=== PATIENT | male | born 1950 | race Caucasian/White ===

== ENCOUNTER 2024-03-14 01:40 | Inpatient (IN) | payer OTHER ==
[2024-03-14] VITALS (15 sets, daily range): BP systolic 114–161; BP diastolic 68–98
[~2024-03-14] VITALS: Ht 172.7 cm; Wt 83.0 kg
[~2024-03-14 01:40] MED LIST: CHLORTHALIDONE25 MG PO; CYMBALTA20 MG; CYMBALTA20 MG PO; FLOMAX0.4 MG PO; FUROSEMIDE40 MG PO; HYDROXYZINE HCL50 MG PO; LEVOTHYROXINE50 MCG PO; LIPITOR20 MG PO; LISINOPRIL10 MG PO; METOPROLOL SUC100 MG PO; OMEPRAZOLE40 MG PO; POTASSIUM CHLO10 MEQ PO; PRIMIDONE50 MG PO
[2024-03-14] MEDS ORDERED: FAMOTIDINE 20 MG/ 2 ML VIAL IV ONE (01:45)
[2024-03-14] MEDS ORDERED: LACTATED RINGER'S 1,000 ML IV ONE ×2 (01:45→03:15)
[2024-03-14 02:00] LABS: BASOPHILS 0.5 % (0-2); EOSINOPHILS 0.1 % (0-6); HEMATOCRIT 43.1 % (35.0-50.0); HEMOGLOBIN 13.7 g/dL (12.0-18.0); LYMPHOCYTES 7.1 % (24-44); MCH 24.8 (27-36); MCHC 31.9 g/dl (30-36); MCV 77.7 fl (81-99); MONOCYTES 6.3 % (0-12); PLATELET COUNT 154 K/uL (140-440); RBC 5.54 M/ul (4.3-5.7); RDW 14.2 (10.5-15.0)
[2024-03-14 02:38] LABS: ALBUMIN 3.6 g/dL (3.4-5.0); ALBUMIN/GLOBULIN RATIO 1.13 (1.1-2.4); ALKALINE PHOSPHATASE 137 U/L (46-116); ALT (SGPT) 215 U/L (14-59); ANION GAP 8.7 (7-21); AST (SGOT) 425 U/L (15-37); BILIRUBIN, TOTAL 3.5 ng/dL (0.2-1.0); CALCIUM 8.4 mg/dL (8.5-10.1); CARBON DIOXIDE 22 mmol/L (21-32); CHLORIDE 101 mmol/L (98-107); CREATININE, SERUM 1.32 mg/dL (0.70-1.30); GLOMERULAR FILTRATION RATE,EST 57 mL/min (>60); POTASSIUM 3.7 mmol/L (3.5-5.1); PROTEIN, TOTAL 6.8 g/dL (6.4-8.2); UREA NITROGEN 21 mg/dL (7-18)
[2024-03-14 02:43] LABS: INFLUENZA B NAA NEGATIVE (NEGATIVE); RESPIRATORY SYNCYTIAL VIR NAA NEGATIVE (NEGATIVE)
[2024-03-14] MEDS ORDERED: LACTATED RINGER'S 1,000 ML IV SCH ×2 (03:15→16:30)
[2024-03-14] MEDS ORDERED: levoFLOXacin 750 MG/150 ML BAG IV ONE (03:15)
[2024-03-14] MEDS ORDERED: ondansetron HCL 4 MG/2 ML VIAL IV PRN (03:15)
[2024-03-14] MEDS ORDERED: HYDROmorphone HCL 1 MG/ML SYR IV PRN ×2 (03:15→12:45)
[2024-03-14 03:20] LABS: INR 1.22 (0.80-1.30); PROTIME 14.6 Sec (11.2-14.2)
[2024-03-14 03:35] LABS: BILIRUBIN, URINE POSITIVE (negative); BLOOD/HGB, URINE NEGATIVE (Negative); KETONE, URINE NEGATIVE (Negative); LEUK ESTERASE, URINE NEGATIVE (negative); NITRITE, URINE NEGATIVE (negative); PH, URINE 6.5 (5-7)
[2024-03-14 04:33] LABS: LACTIC ACID, BLOOD 3.7 mmol/L (0.4-2.0)
[2024-03-14] MEDS ORDERED: TRAZODONE HCL50 MG PO (04:50)
[2024-03-14] MEDS ORDERED: LIPITOR40 MG PO (04:50)
[2024-03-14] MEDS ORDERED: FLOMAX0.4 MG PO (04:52)
[2024-03-14] MEDS ORDERED: PROPRANOLOL HCL20 MG PO (04:52)
[2024-03-14] MEDS ORDERED: 24 HOUR NASAL16.9 ML NAS (04:53)
--- NOTE | 2024-03-14 05:30 | NUR ---
ATTEMPTED 2ND IV WITHOUT SUCCESS. BRUISE LEFT IN THE AREA OF RFA. WRAPPED WITH GUAZE AND COBAN.
--- NOTE | 2024-03-14 06:16 | NUR ---
PT ARRIVED TO FLOOR AND TRANSFERRED TO BED. IV WNL, SCHEDULED MEDS AND FLUIDS PROVIDED. VS AND I&O COMPLETED. PT STATES PAIN IS 2/10 AND DENIES NEED FOR PAIN INTERVENTION, ASSESSMENT COMPLETED. ABD SOFT, ROUND, TENDER TO PALPATION. PT REPORTS LAST BM YESTERDAY. PT HAS TREMORS AT BASELINE. PT STATES NO OTHER NEEDS AT THIS TIME. C.O.S IN ROOM.
--- NOTE | 2024-03-14 08:39 | NUR ---
DR. BLANDON IN ROOM TO SEE PATIENT AND DISCUSS PLAN OF CARE. PATIENT UP TO VOID.
[2024-03-14] MEDS ORDERED: SODIUM CHLORIDE 0.9% 1,000 ML IV SCH (08:45)
[2024-03-14] MEDS ORDERED: FAMOTIDINE 20 MG/ 2 ML VIAL IV SCH (09:00)
--- NOTE | 2024-03-14 10:16 | NUR ---
VISITED DURING SPIRITUAL CARE ROUNDS. PT APPEARED TO BE SLEEPING. DID NOT DISTURB. PROVIDED PRAYER.
--- NOTE | 2024-03-14 10:30 | NUR ---
Spoke with Forrest. No needs from MARK.
--- NOTE | 2024-03-14 10:30 | NUR ---
Spoke with Forrest. Correctional officers in the room. Pt states he resides at [facility], he does not have any issues walking and does not use any DME. He will return to [facility] on dc and the [facility] will assist pt as needed. No needs from CM.
[2024-03-14] MEDS ORDERED: PROPRANOLOL HCL10 MG PO (11:15)
--- NOTE | 2024-03-14 11:37 | NUR ---
PATIENT GIVEN PRN DILAUDID FOR 9/10 PAIN IN ABDOMEN. PT TOLERATED WELL AND IS NOW RESTING BETTER. METAL CUFFS AND BELLY CHAIN FROM [employer] HAVE BEEN REMOVED PER MD.
[2024-03-14] MEDS ORDERED: VITAMIN D325 MC4 PO (11:51)
--- NOTE | 2024-03-14 11:52 | NUR ---
MED REC COMPLETE
[2024-03-14] MEDS ORDERED: ENOXAPARIN SODIUM 30 MG/0.3 ML SYR SUB-Q SCH (12:38)
[2024-03-14] MEDS ORDERED: ENOXAPARIN SODIUM 40 MG/0.4 ML SYR SUB-Q SCH (12:52)
[2024-03-14] MEDS ORDERED: MAGNESIUM SULFATE 2 GM/50 ML BAG IV ONE (13:00)
--- NOTE | 2024-03-14 14:48 | NUR ---
PATIENT RESTING AT THIS TIME. 1500 LABS TO BE DRAWN. IV FLAGYL STARTED. PT REMAINS TACHYPNEIC AROUND 32-35 AT THIS TIME. PT CONINUES TO BE TREMULOUS AT HIS BASELINE. TEMP IS 103.3 AT THIS TIME. PT TRIES TO STAND TO VOID BUT UNABLE TO VOID AT THIS TIME, HOWEVER SOME AMOUNT OF URINE NOTED ON CHUX UNDER PATIENT. PATIENT NOW BACK IN BED. MD TO BE NOTIFIED OF FEVER.
[2024-03-14 15:29] LABS: ALBUMIN 3.2 g/dL (3.4-5.0); ALBUMIN/GLOBULIN RATIO 0.94 (1.1-2.4); ANION GAP 15.6 (7-21); BILIRUBIN, TOTAL 6.4 ng/dL (0.2-1.0); BUN/CREATININE RATIO 8.73 (6.0-28.6); CALCIUM 7.9 mg/dL (8.5-10.1); CREATININE, SERUM 1.26 mg/dL (0.70-1.30); POTASSIUM 3.6 mmol/L (3.5-5.1); PROTEIN, TOTAL 6.6 g/dL (6.4-8.2)
[2024-03-14] MEDS ORDERED: LIDOCAINE 2% VISCOUS 6 ML SYR TOP ONE (16:00)
[2024-03-14] MEDS ORDERED: CEFEPIME HCL/D5W 2 GM/100 ML PIGGYBACK IV SCH (16:00)
[2024-03-14] MEDS ORDERED: ACETAMINOPHEN 325 MG TAB PO PRN (16:00)
[2024-03-14 16:53] LABS: BILIRUBIN, URINE POSITIVE (negative); BLOOD/HGB, URINE MODERATE (Negative); KETONE, URINE SMALL (Negative); LEUK ESTERASE, URINE NEGATIVE (negative); NITRITE, URINE NEGATIVE (negative); PH, URINE 7.5 (5-7)
[2024-03-14 17:00] LABS: EPITHELIAL CELLS, URINE SQUAMOUS 1+ /lpf (0-1+)
[2024-03-14 17:01] LABS: BACTERIA, URINE NONE SEEN /hpf (negative); CASTS, URINE NONE SEEN \\lpf; CRYSTALS, URINE NONE SEEN (0-1+); REFLEX CULTURE, URINE No (No)
[2024-03-14 17:02] LABS: COLLECTION TYPE, URINE CATH
--- NOTE | 2024-03-14 17:25 | NUR ---
PRESTON CATH INSERTED PER ORDER. URINE IS NOW DARKER AND MORE CONCENTRATED THAN EARLIER TODAY. IVF ARE INFUSING AT 125 ML/HR. AFTER PRESTON INSERTED, PATIENT REPORTS THAT IT FEELS LIKE URINE IS LEAKING. SOME URINE NOTED BELOW HIM ON CHUX PAD. NEW CHUX PLACED AND GOWN PLACED. PATIENT REPORTS PAIN IS UNDER CONTROL AT THIS TIME. [employer] GUARDS REMAIN IN ROOM. IV CEFEPIME INFUSING.
--- NOTE | 2024-03-14 20:29 | NUR ---
PATIENT RESTING IN BED, ALERT AND ORIENTED, HE IS IN RESTRAINTS PER [employer] PROTOCOL, TWO GUARDS IN ROOM. PATIENT IS NOTED TO HAVE PRODUCED 345ML URINE IN LAST HOUR. HE REPORT PAIN 7/10 RLQ ABD. 0.5MG DILAUDID IV PRN PROVIDED. PATIENT TEMP 98.1. HE IS PROVIDED ICE CHIPS FOR COMFORT PER CONVERSATION WITH SURGEON AT SHIFT CHANGE REPORT. ASSESSMENT COMPLETE.
--- NOTE | 2024-03-14 23:00 | NUR ---
IN ROOM PER PRIMARY RN REQUEST TO HUNG SCHEDULED IV ABX AND ADMINISTER PRN TYLENOL-SEE EMAR. pt SWALLOWED TYLENOL WNL. IV SITE WNL, IV FLUIDS INFUSING TO LEFT AC. IV ABX INFUSING WNL DIRECTED VIA LEFT WRIST IV SITE. NO FURTHER NEEDS, CALL LIGHT IN REACH. PRIMARY RN UPDATED AND AWARE.
[2024-03-15] VITALS (16 sets, daily range): BP systolic 131–170; BP diastolic 68–102
--- NOTE | 2024-03-15 00:58 | NUR ---
PATIENT ALERT AND ORIENTED, HE REPORTS HIS PAIN IS WELL MANAGED AT THIS TIME. HE REPORTS NO NEEDS OR CONCERNS AT THIS TIME.
[2024-03-15 05:37] LABS: BASOPHILS 0.4 % (0-2); HEMATOCRIT 37.9 % (35.0-50.0); HEMOGLOBIN 12.5 g/dL (12.0-18.0); LYMPHOCYTES 10.2 % (24-44); MCH 25.5 (27-36); MCV 77.2 fl (81-99); MONOCYTES 8.9 % (0-12); NEUTROPHILS 80.5 % (39-80); PLATELET COUNT 111 K/uL (140-440); RBC 4.91 M/ul (4.3-5.7); RDW 14.6 (10.5-15.0)
[2024-03-15 05:51] LABS: ALBUMIN 2.9 g/dL (3.4-5.0); ALBUMIN/GLOBULIN RATIO 0.97 (1.1-2.4); ANION GAP 13.8 (7-21); BILIRUBIN, TOTAL 5.8 ng/dL (0.2-1.0); BUN/CREATININE RATIO 8.57 (6.0-28.6); CALCIUM 7.8 mg/dL (8.5-10.1); CREATININE, SERUM 1.05 mg/dL (0.70-1.30); POTASSIUM 3.8 mmol/L (3.5-5.1); PROTEIN, TOTAL 5.9 g/dL (6.4-8.2)
[2024-03-15] MEDS ORDERED: levoFLOXacin 750 MG/150 ML BAG IV SCH (06:00)
--- NOTE | 2024-03-15 08:07 | NUR ---
REPORT RECEIVED FROM NIGHT RN - PT RESTING IN BED, AWAKE AND ALERT. REPORTS FEELING BETTER THAN YESTERDAY, GENERAL APPERANCE IMPROVED. PAIN RATING 3/10 RIGHT NOW. NIGHT REVIEW PROVIDED TO .
[2024-03-15] MEDS ORDERED: Calcium Gluconate in NS 1,000 MG/50 ML BAG IV ONE (09:15)
--- NOTE | 2024-03-15 09:30 | NUR ---
ASSESSMENT COMPLETE - PT RESTING IN BED, RATES PAIN IMPROVED FROM 8 TO 3 AFTER PRN ADMINISTRATION. BOWEL TONES ACTIVE, NO BM YET. SMALL AMOUNT OF CLEAR LIQS PROVIDED, PT TOLERATING WITHOUT NAUSEA. VS STABLE. UPDATED POC REVIEWED WITH PT.
--- NOTE | 2024-03-15 09:55 | EKG ---
[facility] [address] [place], [place] [address] Signed Normal sinus rhythm Left axis deviation Abnormal ECG No previous ECGs available Confirmed by ROOSEVELT GODFREY MD ([id number]) on 03/15/2024 9:55:19 AM Electronically Signed By: ROOSEVELT GODFREY 03/15/24 0955 PATIENT NAME: MATILDA CASTANO Electrocardiogram DATE OF : 52 PHYSICIAN: ROOSEVELT GODFREY REPORT #: [id number] REPORT IS CONFIDENTIAL AND NOT TO BE RELEASED WITHOUT AUTHORIZATION
--- NOTE | 2024-03-15 10:00 | NUR ---
PT RESTING IN BED WITHOUT COMPLAINTS. VS WNL ON MONITOR. CALL LIGHT IN REACH.
--- NOTE | 2024-03-15 11:14 | NUR ---
Calcium gluconate infusing per order. Patient resting in bed and states no needs at this time, no pain or nausea. Call light in reach.
--- NOTE | 2024-03-15 11:45 | NUR ---
No change in plan, no needs for cm at this time.
--- NOTE | 2024-03-15 13:01 | NUR ---
RN ROUNDING ON PT - RESTING IN BED TOLERATING CLEAR LIQS WITHOUT PAIN OR NAUSEA. DENIES NEEDS AT THIS TIME. RATES PAIN 2/10, WATCHING TV. CALL LIGHT IN REACH.
--- NOTE | 2024-03-15 13:47 | NUR ---
VISITED DURING SPIRITUAL CARE ROUNDS. PT RECEIVING NURSING CARE. DID NOT INTERRUPT. PROVIDED PRAYER.
[2024-03-15] MEDS ORDERED: CEFEPIME HCL/D5W 1 GM/100 ML PIGGYBACK IV SCH (14:00)
--- NOTE | 2024-03-15 14:06 | NUR ---
VISITED DURING SPIRITUAL CARE ROUNDS. PT APPEARED TO BE SLEEPING. DID NOT DISTURB. PROVIDED PRAYER.
--- NOTE | 2024-03-15 15:57 | NUR ---
PT RESTING IN BED, VS STABLE ON MONITOR. CALL LIGHT IN REACH.
--- NOTE | 2024-03-15 16:00 | NUR ---
PATIENT AWAKE IN BED, 2 OFFICERS IN ROOM. BEDBATH COMPLETE BY THIS SECURITY DOOR INSTALLER AND RN. PATIENT ASSISTING WITH BATH CARE. LINEN AND GOWN CHANGED. PATIENT AMBULATED SHORT DISTANCE AROUND ROOM WITH 2PA FOR SAFETY. BACK TO BED, CALL LIGHT IN EASY REACH. NO OTHER NEEDS AT THIS TIME
--- NOTE | 2024-03-15 16:00 | NUR ---
ASSESSMENT COMPLETE - UNCHANGED. PT CONTINUES TO IMPROVE IN APPERANCE. BED BATH COMPLETE WITH PT AND SERVICE CLEANER ASSISTANCE. LINENS CHANGED, PRESTON CARE COMPLETE. PT ASSISTED WITH AMBULATION AROUND ROOM. ENCOURAGED DEEP BREATHING AND COUGH. BACK TO BED WITH CALL LIGHT IN REACH.
--- NOTE | 2024-03-15 17:54 | NUR ---
RN IN ROOM TO RESPOND TO ALARMING IV PUMP. PT RESTING IN BED WATCHING TV WITHOUT COMPLAINTS. CALL LIGHT IN REACH.
--- NOTE | 2024-03-15 20:00 | NUR ---
ROUNDING ON PATIENT, HE IS REPOSITIONING IN BED, ASSESSMENT COMPLETE. HE HAD LARGE EMESIS LAST PART OF DAYSHIFT. HE REPORTS NO NAUSEA NOW. HE REPORTS PAIN 5/10 AND WOULD LIKE PAIN MEDICATION IF STAFF FEELS APPROPRIATE. THIS RN GAVE EDUCATION ON SIDE EFFECTS OF SLOWING BOWELS AND RESPIRATORY EFFECT. PATIENT THEN SAID, "OH, I DONT REALLY NEED IT THEN" THIS RN THEN DISCUSSED WITH PATIENT IF HIS PAIN IS INCREASEING PAIN MEDICATION IS APPROPRIATE WHEN NEEDED, PATIENT HAD ASKED "HOW OFTEN CAN I HAVE THE PAIN MEDICATION" PATIENT AND NURSE DISCUSSED HE HAS BEEN ON AVERAGE NEEDED ABOUT 2 DOSES OF THE PAIN MEDICATION A SHIFT AND THAT IS EXPECTED, IF THAT IS NO LONGER COVERING PAIN YOU MEDICAL CONDITION IS IMPROVING THERE MAYBE NEED TO INVESTIGATE WHY" PATIENT ADMINISTERED PRN DILAUDID 0.5MG IV AT THIS TIME.
--- NOTE | 2024-03-15 23:19 | NUR ---
CALLED IN REGARDS TO PATIENTS B/P 169/96, HEART RATE 63. ALSO PATIENT HAS INCREASED ABD PAIN ACROSS RIGHT AND LEFT LOWER QUADRANTS, BOWEL TONE RARE TO ABSENT IN UPPER RIGHT AND LEFT QUADRANTS, HYPOACTIVE TO RARE IN BOTH LOWER QUADRANTS OF ABD. EXPLAINED THIS IS NOT UNEXPECTED AT THIS TIME NO NEW ORDERS.
--- NOTE | 2024-03-15 23:37 | NUR ---
PATIENT ANDMINISTERED DILAUDID PRN FOR PAIN 03/15, HE ALSO IS GIVEN TYLENOL TO HELP WITH ACHES/PAIN AND LOW GRADE FEVER. HE REPORTS NAUSEA THIS RN INTO ROOM, ZOFRAN 8MG IV ADMINISTERED, NO EMESIS.
[2024-03-16] VITALS (15 sets, daily range): BP systolic 138–172; BP diastolic 88–103
--- NOTE | 2024-03-16 01:02 | NUR ---
PATIENT SITTING UP IN BED, ALERT AND ORIENTED, HE REPORTS HIS NAUSEA IS GONE AND HIS PAIN IS WELL MANAGED AT THIS TIME. HE HAS NO REQUEST AT THIS TIME
[2024-03-16 05:30] LABS: BASOPHILS 0.4 % (0-2); EOSINOPHILS 0.6 % (0-6); HEMATOCRIT 38.4 % (35.0-50.0); HEMOGLOBIN 12.9 g/dL (12.0-18.0); LYMPHOCYTES 16.7 % (24-44); MCH 25.5 (27-36); MCHC 33.6 g/dl (30-36); MCV 75.9 fl (81-99); MONOCYTES 11.1 % (0-12); NEUTROPHILS 71.2 % (39-80); PLATELET COUNT 101 K/uL (140-440); RBC 5.06 M/ul (4.3-5.7); RDW 14.8 (10.5-15.0)
--- NOTE | 2024-03-16 05:30 | NUR ---
LABS HAS DRAWN FOR AM ORDERS, PATIENT IS ALERT AND ORIENTED, HE REPORTS NO NAUSEA, AND PAIN IS WELL MANAGED AT THIS TIME. TWO GUARDS FROM [employer] AT BEDSIDE, PATIENT IN RESTRAINTS PER [employer] PROTOCOL MANAGED BY [employer] GUARDS. PATIENT REQUESTED ICE CHIPS, CUP WITH JUST BOTTOM COVERED IN ICE FOR ORAL COMFORT. PATIENT HAS NO OTHER REQUESTS AT THIS TIME.
--- NOTE | 2024-03-16 05:45 | NUR ---
PATIENT CALLED TO REPORT PAIN 8/10 ASKING FOR PAIN COVERAGE. PATIENT ADMINISTERED TYLENOL PO WITH SIP OF WATER AND DILAUDID IV PRN. PATIENT REPORTS NO NAUSEA
[2024-03-16 05:49] LABS: ALBUMIN 2.8 g/dL (3.4-5.0); ALBUMIN/GLOBULIN RATIO 0.8 (1.1-2.4); ANION GAP 12.6 (7-21); BILIRUBIN, TOTAL 4.4 ng/dL (0.2-1.0); BUN/CREATININE RATIO 7.14 (6.0-28.6); CALCIUM 7.9 mg/dL (8.5-10.1); CREATININE, SERUM 0.98 mg/dL (0.70-1.30); POTASSIUM 3.6 mmol/L (3.5-5.1); PROTEIN, TOTAL 6.3 g/dL (6.4-8.2)
--- NOTE | 2024-03-16 07:45 | NUR ---
REPORT RECIEVED FROM WIRE SPOOLER RN. PATIENT ALERT AND ORIENTED. PER REPORT PATIENT CONTINUES TO REPORT ABD PAIN. PATIENT ON TELE MONITOR. CALLS APPROPRIATELY. PATIENT E[facility]I AND HAS SHACKLES IN PLACE AND 2 GAURDS AT THE BEDSIDE.
--- NOTE | 2024-03-16 09:00 | NUR ---
REPORT RECIEVED FROM PA ED RN. PATIENT TRANSFERED FROM ER NURSE TO ROOM 126. PATIENT ASSSITED TO BED AND TOELRATED WELL. SKIN CHECK PREFORMED WITH ELMER AND ED RN. PATIENT ARRIVED WITH NG TUBE IN PLACE. PLACED TO LOW INT. SUCTION. MD YBARRA WILL BE IN TO SEE PATIENT. PATIENT IS A MEDSURG OVERFLOW PATIENT. PATIENT DENIES ANY OTHER NEEDS AT THIS TIME.
--- NOTE | 2024-03-16 09:29 | NUR ---
IN TO CHECK ON PT. ASKED PT ABOUT PAIN. PT WAS SLOW TO ANSWER, BUT EVENTUALLY REPORTED 7/10 PAIN AND REQUESTED MEDS. MONIE NICOLE NOTIFIED. VS TAKEN. PT AFEBRILE AT 98.3. MORNING MED PASS DONE WITH MONIE NICOLE. EXPLAINED TO PT THE MEDS HE WAS BEING GIVEN AND ASKED IF HE HAD ANY QUESTIONS. PT DENIES QUESTIONS. PT WAS POLITE AND AGREEABLE. CALL LIGHT WITHIN REACH. PT DENIES ANY FURTHER NEEDS AT THIS TIME.
--- NOTE | 2024-03-16 09:30 | NUR ---
RESIDENT TECH IN TO ASSSIT PATIENT UP TO THE BEDSIDE CAMMODE. PATIENT TOELRATED WELL. PATIENT BACK IN BED AND CALL LIGHT IN REACH.
--- NOTE | 2024-03-16 09:40 | NUR ---
No plan for dc today.
[2024-03-16] MEDS ORDERED: DEXTROSE 5% - LACTATED RINGERS 1,000 ML IV SCH (10:00)
--- NOTE | 2024-03-16 10:00 | NUR ---
PRN PAIN MEDICATION GIVEN FOR PAIN 04/15 IN ABD. PATIENT RESTING IN BED. MD YBARRA IN TO SEE PATIENT AND DISSCUSED PLAN OF CARE WITH PATIENT. WILL ENCOURAGE PATIENT TO HAVE CLEAR LIQUIDS TOLERATED. PATIENT ALERT AND ORIENTED. PATIENT HAS SHACKLES IN PLACE X4. PATIENT HAS 2 GAURDS AT THE BEDISDE. AM MEDICATIONS ADMINISTERED. P[ATIENT HAS CALL LIGHT. RESIDENT TECH IN TO DO I/O. ICE PROVIDED.
[2024-03-16] MEDS ORDERED: PROPRANOLOL HCL 20 MG TAB PO SCH (10:02)
--- NOTE | 2024-03-16 12:00 | NUR ---
PATIENT RESTING IN BED.PATIENT DENIES ANY NEEDS AT THIS TIME. RESIDENT TECH IN TO DO VITALS AND ASSIST WITH CARE.
--- NOTE | 2024-03-16 14:04 | NUR ---
THIS RN IN TO CHANGE IV PUMP D/T BEEPING. PATIENT REPORTS PAIN IS 4/10 AND IMPROVED SINCE EARLIER. DISCUSSED PLAN TO HAVE PATIENT GET UP AND WALK THE UNIT IN AWHILE.
--- NOTE | 2024-03-16 15:00 | NUR ---
AMBULATED PT DOWN CCU BUCHANAN. [employer] GUARDS X2 ACCOMPANIED. PT SEEMED A LITTLE SHAKY ON FEET BUT DENIED FEELING LIGHTHEADED OR DIZZY EACH OF THE THREE TIMES HE WAS ASKED. PT MADE ONE FULL LOOP OF WALKING. AMBULATED PT BACK TO PT ROOM WHERE KIM OLSON HAD CHANGED BED LINENS. THIS SRT AND KIM OLSON ASSISTED PT WITH BED BATH AND SHOWER CAP. FRESH WARM BLANKETS BROUGHT AND PT SETTLED BACK INTO BED. PT REPORTS FEELING SLIGHTLY BETTER AFTER WALK AND BED BATH. CALL LIGHT WITHIN REACH, PT DENIES ANY FURTHER NEEDS AT THIS TIME.
--- NOTE | 2024-03-16 17:31 | NUR ---
PATIENT CALLED REQUESTING PAIN MEDICATION. PATIENTS GAURDS AT THE BEDSIDE. PATIENT REPORTS 8/10 PAIN AT THIS TIME. PATIENT GIVEN PRN PAIN MEDICAITION. PATIENT DENIES ANY OTHER ENEDS AT THIS TIME. UPDATED PATIENTS GUARDS ON THE "BEEPING" IN THE ROOM. EDUCATED THERE IS NO NEED TO CALL ON THE MONITOR ALARMS THAT THE STAFF WILL TAKE CARE OF THEM SOON POSSIBLE. PATIENTS ROBSON HAVE MADE SOME INAPPROPRIATE COMMENTS TO PATIENT AND STAFF TODAY. CASTING MACHINE OPERATOR HELPER RN UPDATED.
--- NOTE | 2024-03-16 18:15 | NUR ---
PATIENT MOVED TO ROOM 123 VIA BED WITH 2 GADIOMEDES AT THE BEDSIDE. ALL BELONGINGS SENT WITH ROBSON. PATIENT REPORT GIVEN TO LIAM LOMAX. ALL QUESTIONS ANSWERED. REVIEWD PLAN OF CARE. ICE CHIPS PROVIDED AND PRESTON EMPTIED PRIOR TO TRANSFER.
--- NOTE | 2024-03-16 18:16 | NUR ---
PT ARRIVES TO ROOM 123 VIA BED WITH CCU RN - ALERT AND ORIENTED, RATES PAIN 3/10. VS STABLE. ICE CHIPS PROVIDED, DENIES NAUSEA. CALL LIGHT IN REACH. SHANTALDS X2 AT BEDSIDE.
--- NOTE | 2024-03-16 19:15 | NUR ---
REPORT RECEIVED FROM DAY SHIFT RN. PT LYING IN BED ALERT AND ORIENTED. DENIES NEEDS. WHITE BOARD UPDATED. CALL LIGHT IN REACH.
--- NOTE | 2024-03-16 20:12 | NUR ---
EVENING ASSESSMENT COMPLETE. IV ABX INFUSING PER ORDER. PT DENIES PAIN OR NAUSEA AT THIS TIME. BOWEL TONES HYPOACTIVE. ABD SOFT. PT REPORTS ONLY TAKING A FEW ICE CHIPS AT A TIME. PRESTON PATENT WITH ORANGISH YELLOW URINE. PT DENIES QUESTIONS OR CONCERNS. CALL LIGHT IN REACH. GUARDS X 2 IN ROOM.
--- NOTE | 2024-03-16 20:59 | NUR ---
SCHEDULED MEDS ADMIN PER EMAR. IV ABX INFUSING PER ORDER. NO FURTHER NEEDS. CALL LIGHT IN REACH.
--- NOTE | 2024-03-16 22:16 | NUR ---
pump alarming, issue resolved. iv abx complete via left ac site. iv abx with iv fluids infusing wnl via left wrist iv site. no additional needs or concerns verbalized. board updated.
--- NOTE | 2024-03-17 00:12 | NUR ---
PT RESTING IN BED ON RIGHT SIDE. DENIES NEEDS. GUARDS X 2 IN ROOM.
--- NOTE | 2024-03-17 02:07 | NUR ---
PT LYING ON LEFT SIDE RESTING WITH EYES CLOSED. AWAKENS BRIEFLY. IV ABX INFUSING PER ORDER. NO NEEDS AT THIS TIME. GUARDS REMAIN IN ROOM. CALL LIGHT IN REACH.
--- NOTE | 2024-03-17 03:57 | NUR ---
PT RESTING IN BED WITH EYES CLOSED. RESPIRATIONS EVEN. CALL LIGHT IN REACH.
--- NOTE | 2024-03-17 04:42 | NUR ---
in room per primary rn request to assess iv site, lon informed her pt is "messing with the iv site". this rn in room, pt fidgeting with left wrist iv site dressing, pt instructed immediately to leave iv site alone and promptly educated why this is important. when asked why he is fidgeting with iv site, pt states, "i don't know what i was thinking, i'm sorry. sometimes my brain doesn't work right". pt instructed to leave iv site alone and to call if iv site becomes bothersome, pt verbalizes understanding.iv site dressing loose. old dressing removed, site cleaned with alcohol allowed to dry then new dressing in place. clave cleaned, iv fluids resumed. guards x2 in room. primary rn updated and aware. no additional needs or concerns verbalized. x2 in room.
[2024-03-17 05:23] VITALS: BP 162/84
[2024-03-17 05:23] LABS: HEMOGLOBIN 12.9 g/dL (12.0-18.0)
[2024-03-17 05:26] LABS: BASOPHILS 0.7 % (0-2); EOSINOPHILS 1.6 % (0-6); HEMATOCRIT 39.3 % (35.0-50.0); LYMPHOCYTES 14.8 % (24-44); MCH 25.1 (27-36); MCHC 32.8 g/dl (30-36); MCV 76.5 fl (81-99); MONOCYTES 7.6 % (0-12); NEUTROPHILS 75.3 % (39-80); PLATELET COUNT 139 K/uL (140-440); RBC 5.13 M/ul (4.3-5.7); RDW 15.1 (10.5-15.0)
--- NOTE | 2024-03-17 05:32 | NUR ---
VS AND I&O OBTAINED. PT DENIES PAIN OR NAUSEA. PRESTON PATENT WITH QS URINE. PT DENIES NEEDS. GUARDS X 2 IN ROOM. CALL LIGHT IN REACH.
[2024-03-17 05:36] LABS: ALBUMIN 2.8 g/dL (3.4-5.0); ALBUMIN/GLOBULIN RATIO 0.8 (1.1-2.4); ANION GAP 13.3 (7-21); BUN/CREATININE RATIO 6.45 (6.0-28.6); CALCIUM 8.1 mg/dL (8.5-10.1); CREATININE, SERUM 0.93 mg/dL (0.70-1.30); MAGNESIUM 1.6 mg/dL (1.8-2.4); PHOSPHORUS, INORGANIC 1.9 mg/dL (2.5-4.9); POTASSIUM 3.3 mmol/L (3.5-5.1); PROTEIN, TOTAL 6.3 g/dL (6.4-8.2)
[2024-03-17] MEDS ORDERED: LEVOTHYROXINE SODIUM 50 MCG TAB PO SCH (07:00)
[2024-03-17] MEDS ORDERED: MAGNESIUM SULFATE 2 GM/50 ML BAG IV ONE ×2 (07:00→09:00)
[2024-03-17] MEDS ORDERED: POTASSIUM PHOSPHATE 30 MMOL in DEXTROSE 5% 500 ML IV ONE ×2 (07:00→09:00)
--- NOTE | 2024-03-17 07:45 | NUR ---
Patient awake in bed, alert and oriented x4. Patient reports abdominal pain, admin dilaudid 0.5mg IV at this time.
[2024-03-17] MEDS ORDERED: FAMOTIDINE 20 MG TAB PO SCH (09:00)
[2024-03-17] MEDS ORDERED: TAMSULOSIN HCL 0.4 MG CAP PO SCH (09:00)
[2024-03-17 09:14] VITALS: BP 153/85
--- NOTE | 2024-03-17 09:49 | NUR ---
NO PLAN FOR DC. PATIENT MAY NEED SURGERY IN 1-2 DAYS. SEE MD NOTE.
--- NOTE | 2024-03-17 11:06 | NUR ---
UR CONCURRENT REVIEW: [facility]-CONTINUES TO MEET INPT STATUS PER PANCREATITIS GUIDELINE [facility] INPT-CCU 03/14/24 @ 0312 CHANGE TO M/S STATUS 03/16/24 @ 1815 ORDER MATCHES STATUS CLINICALS FAXED THIS AM FOR CONTINUED REVIEW. PLAN TO RETURN TO [facility] [place] 03/20/24
[2024-03-17] MEDS ORDERED: DULOXETINE HCL 60 MG CAP PO SCH ×2 (12:00→12:15)
[2024-03-17] MEDS ORDERED: DULOXETINE HCL 20 MG CAP PO SCH (12:15)
--- NOTE | 2024-03-17 12:30 | NUR ---
ADMIN TYLENOL 650MG PO FOR REPORTS OF 5/10 ABDOMINAL PAIN. PATIENT IN BED WATCHING TV, NO ACUTE DISTRESS. IV SITE REMAINS PATENT, FLUIDS INFUSING PER PROVIDER ORDER. PERSONAL SUPPLIES AND CALL LIGHT WITHIN REACH.
[2024-03-17 13:54] VITALS: BP 147/77
--- NOTE | 2024-03-17 15:03 | NUR ---
Patient watching tv, no distress. Two correctional gaurds at bedside. Patient has no needs at this time. Personal supplies and call light within reach.
[2024-03-17 18:30] VITALS: BP 145/80
--- NOTE | 2024-03-17 19:25 | NUR ---
REPORT RECEIVED FROM DAY RN. PATIENT RESTING IN BED WITH EYES CLOSED. RESPIRATIONS EVEN AND UNLABORED. IVF INFUSING WITH NO ISSUES OR CONCERNS AT THIS TIME. OFFICERS AT BEDSIDE WITH PATIENT. CALL LIGHT WITHIN REACH.
[2024-03-17 20:04] VITALS: BP 149/82; BP 149/821
--- NOTE | 2024-03-17 20:15 | NUR ---
PATIENT RESTING IN BED WITH EYES CLOSED. AROUSES TO VOICE. REPORTS HE HAS NO PAIN OR DISCOMFORT AT THIS TIME. DENIES ANY NAUSEA. IV SITES PATENT AND FLUSH WELL. IV ABX STARTED. HS MEDICATIONS GIVEN. BOWEL TONES ACITVE X 4 QUADRANTS. LUNGS CTA. ICE WATER GIVEN. CATHERTER DRAINING DARK YELLOW URINE. OFFICERS AT BEDSIDE. NO FURTHER NEEDS AT THIS TIME. CALL LIGHT WITHIN REACH.
--- NOTE | 2024-03-17 22:15 | NUR ---
IN TO ROUND ON PATIENT. PATIENT REQUESTING PAIN MEDICATIONS. PRN GIVEN. IV SITE REMAINS PATENT. OFFICERS AT BEDSIDE. NO FURTHER NEEDS AT THIS TIME. CALL LIGHT WITHIN REACH.
[2024-03-18] VITALS (11 sets, daily range): BP systolic 143–172; BP diastolic 69–94
--- NOTE | 2024-03-18 00:06 | NUR ---
PATIENT RESTING IN BED WITH EYES CLOSED. RESPIRATIONS EVEN AND UNLABORED. IVF INFUSING WITH NO ISSUES OR CONCERNS. OFFICERS AT BEDSIDE. CALL LIGHT WITHIN REACH.
--- NOTE | 2024-03-18 02:00 | NUR ---
PATIENT RESTING IN BED WITH OFFICERS AT BEDSIDE. IVF RUNNING WITH NO ISSUES 0200 ABX HUNG. DENIES PAIN AT THIS TIME. IV SITE PATENT. NO FURTHER NEEDS. CALL LIGHT WITHIN REACH.
--- NOTE | 2024-03-18 04:11 | NUR ---
PATIENT RESTING IN BED WITH EYES CLOSED. RESPIRATIONS EVEN AND UNLABORED. OFFICERS AT BEDSIDE. CALL LIGTH WITHIN REACH.
[2024-03-18 05:12] LABS: BASOPHILS 0.8 % (0-2); HEMOGLOBIN 12.5 g/dL (12.0-18.0); LYMPHOCYTES 18.1 % (24-44); MCH 25.4 (27-36); MCV 77.1 fl (81-99); MONOCYTES 8.7 % (0-12); NEUTROPHILS 69.4 % (39-80); PLATELET COUNT 146 K/uL (140-440); RBC 4.93 M/ul (4.3-5.7)
[2024-03-18 05:22] LABS: ALBUMIN 2.7 g/dL (3.4-5.0); ALBUMIN/GLOBULIN RATIO 0.75 (1.1-2.4); ANION GAP 11.4 (7-21); BILIRUBIN, TOTAL 1.9 ng/dL (0.2-1.0); BUN/CREATININE RATIO 9.09 (6.0-28.6); CALCIUM 7.6 mg/dL (8.5-10.1); CREATININE, SERUM 0.88 mg/dL (0.70-1.30); MAGNESIUM 2.2 mg/dL (1.8-2.4); PHOSPHORUS, INORGANIC 2.9 mg/dL (2.5-4.9); POTASSIUM 3.4 mmol/L (3.5-5.1); PROTEIN, TOTAL 6.3 g/dL (6.4-8.2)
--- NOTE | 2024-03-18 06:19 | NUR ---
AM MEDICATIONS GIVEN. IVF INFUSING WITH NO ISSUES OR CONCERNS. IV SITE PATIENT. PATIENT DENIES PAIN AT THIS TIME. ABD DISTENDED AND TENDER. BOWEL TONES ACTIVE X 4 QUADRANTS. DENIES NAUSEA AT THIS TIME. NO FURTHER NEEDS. OFFICERS AT BEDSIDE. CALL LIGHT WITHIN REACH.
--- NOTE | 2024-03-18 07:43 | NUR ---
report from night shift manager. guards in room. patient resting in bed.
[2024-03-18] MEDS ORDERED: fentaNYL citrate 50 MCG/ML SDV IV PRN (09:00)
[2024-03-18] MEDS ORDERED: NALOXONE HCL 0.4 MG SYR IV PRN (09:00)
[2024-03-18] MEDS ORDERED: MIDAZOLAM HCL 2 MG/2 ML VIAL IV PRN (09:00)
[2024-03-18] MEDS ORDERED: ondansetron HCL 4 MG/2 ML VIAL IV PRN (09:00)
[2024-03-18] MEDS ORDERED: IBLOOD GLUCOSE TEST STRIP 1 EA TEST VI PRN (09:00)
--- NOTE | 2024-03-18 09:07 | NUR ---
surgical wipe down completed. consent signed. morning assessment complete. surgery RN here to take patient to surgery. patient cooperative and denies questions.
[2024-03-18] MEDS ORDERED: propofoL 200 MG/20 ML VIAL ONE (09:13)
[2024-03-18] MEDS ORDERED: KETOROLAC TROMETHAMINE 30 MG/ML VIAL ONE (09:13)
[2024-03-18] MEDS ORDERED: dexmedeTOMIDine HCl 200 MCG/2 ML VIAL ONE (09:13)
[2024-03-18] MEDS ORDERED: DEXAMETHASONE SOD PHOS 4 MG/ML VIAL ONE (09:13)
[2024-03-18] MEDS ORDERED: LIDOCAINE HCL 1% 30 ML SDV ONE (09:14)
[2024-03-18] MEDS ORDERED: ROCURONIUM BROMIDE 50 MG/5 ML SYR ONE ×2 (09:14→10:49)
[2024-03-18] MEDS ORDERED: KETAMINE in NS 50 MG/5 ML SYR ONE (09:15)
[2024-03-18] MEDS ORDERED: SODIUM CHLORIDE 0.9% 60 ML IV ONE (09:21)
[2024-03-18] MEDS ORDERED: iopamidoL 30 ML VIAL ONE (09:21)
[2024-03-18] MEDS ORDERED: BUPIVACAINE HCL 0.25% 50 ML MDV ONE (09:21)
[2024-03-18] MEDS ORDERED: LIDOCAINE 1% W/ EPI 1:200,000 30 ML SDV ONE (09:21)
[2024-03-18] MEDS ORDERED: ACETAMINOPHEN 1,000 MG/100 ML VIAL ONE (09:49)
[2024-03-18] MEDS ORDERED: GLUCAGON,HUMAN RECOMBINANT 1 MG/ML VIAL ONE (10:37)
[2024-03-18] MEDS ORDERED: GLYCOPYRROLATE 1 MG/5 ML MDV ONE (10:37)
[2024-03-18] MEDS ORDERED: SUGAMMADEX SODIUM 200 MG/2 ML ML ONE (11:21)
[2024-03-18] MEDS ORDERED: LACTATED RINGER'S 1,000 ML IV ONE (11:29)
--- NOTE | 2024-03-18 11:40 | NUR ---
03/18/24 1140 Pascale Vargas LE 1133: PT ARRIVES TO PACU WITH ORAL AIRWAY IN PLACE, REACTIVE TO POSITIONING. LE 1138: PT STARTS MOANING, HIS EYES ARE OPEN. LE 1139: ORAL AIRWAY REMOVED.
[2024-03-18] MEDS ORDERED: HYDROCODONE/APAP 10/325 1 TAB PO PRN (11:45)
[2024-03-18] MEDS ORDERED: HYDROmorphone HCL 1 MG/ML SYR IV PRN (11:45)
[2024-03-18] MEDS ORDERED: DULOXETINE HCL 60 MG CAP PO SCH (12:00)
[2024-03-18] MEDS ORDERED: DULOXETINE HCL 20 MG CAP PO SCH (12:00)
--- NOTE | 2024-03-18 15:35 | NUR ---
PT IN ROOM WITH GUARDS WATCHING TELEVISION. NO CARES NEEDED OR REQUESTED CALL LIGHT WITHIN REACH. STILL MONITORING VITALS. BP 172/76 PT IS STILL A+O
--- NOTE | 2024-03-18 18:00 | NUR ---
pt i sin ed resting with guards present. pt has not requested or needed pain meds when offered. pt states he feels some pain but is not in need of anything at the moment and will call when ready. call light within reach
--- NOTE | 2024-03-18 19:32 | NUR ---
REPORT RECEIVED FROM DAY SHIFT RN. PT LYING IN BED ALERT AND ORIENTED. DENIES NEEDS. WHITE BOARD UPDATED. CALL LIGHT IN REACH.
--- NOTE | 2024-03-18 19:49 | NUR ---
Board has been updated and call light has been placed within reach
--- NOTE | 2024-03-18 20:58 | NUR ---
EVENING ASSESSMENT COMPLETE. SCHEDULED MEDS ADMIN PER EMAR. PT REPORTS ABD PAIN /10. PRN FOR PAIN ADMIN PER EMAR. PT DENIES NAUSEA. BOWEL TONES HYPOACTIVE. PT REPORTS FLATUS. LAP SITES X 5 WITH GAUZE AND TAPE INTACT. ABD SLIGHTLY DISTENDED. PT UP TO BR TO VOID WITH SBA. GAIT WEAK AND UNSTEADY AT TIMES. BACK TO BED, ANNETTE WELL. SCD'S IN PLACE. PT DENIES FURTHER NEEDS. GUARDS X 2 IN ROOM. CALL LIGHT IN REACH.
--- NOTE | 2024-03-18 22:59 | NUR ---
THIS RN IN TO ROOM TO FIX PUMP. PATIENT REPORTS IMPROVMENT IN PAIN. PATIENT DENIES ANY NAUSEA. PATIENT DENIES ANY FURTHER NEEDS. CALL LIGHT IN REACH. IV INFUSING PER ORDER.
--- NOTE | 2024-03-19 00:15 | NUR ---
PATIENT IS RESTING IN BED WATCHING TV. PATIENT DENIES ANY PAIN OR NAUSEA. IV INFUSING PER ORDER. X2 GUARD REMAIN AT BEDSIDE. PATIENT DENIES ANY NEEDS. CALL LIGHT IN REACH.
--- NOTE | 2024-03-19 01:35 | NUR ---
IV ABX INFUSING PER ORDER. PT REPORTS ABD PAIN. TOO SOON FOR PRN ADMIN. PT AGREEABLE TO WAIT. ICE PACK PROVIDED FOR ABD.
[2024-03-19 02:08] VITALS: BP 175/88
--- NOTE | 2024-03-19 02:22 | NUR ---
PT AWAKE IN BED. VS AND I&O OBTAINED. PT REPORTS ABD PAIN 5/10. PRN FOR PAIN ADMIN PER EMAR. PT REPORTS ICE PACK IMPROVED INCISIONAL PAIN. DENIES NAUSEA. ABD ASSESSMENT UNCHANGED. NO FURTHER NEEDS.
[2024-03-19 02:25] VITALS: BP 175/88
[2024-03-19 04:58] VITALS: BP 168/84
[2024-03-19 05:18] LABS: BASOPHILS 0.6 % (0-2); EOSINOPHILS 0.7 % (0-6); HEMATOCRIT 37.8 % (35.0-50.0); HEMOGLOBIN 12.7 g/dL (12.0-18.0); LYMPHOCYTES 13.6 % (24-44); MCH 25.8 (27-36); MCHC 33.6 g/dl (30-36); MCV 76.7 fl (81-99); MONOCYTES 9.2 % (0-12); NEUTROPHILS 75.9 % (39-80); PLATELET COUNT 169 K/uL (140-440); RBC 4.93 M/ul (4.3-5.7); RDW 14.9 (10.5-15.0)
[2024-03-19 05:30] LABS: ALBUMIN 2.9 g/dL (3.4-5.0); ALBUMIN/GLOBULIN RATIO 0.81 (1.1-2.4); ANION GAP 13.1 (7-21); BILIRUBIN, TOTAL 1.7 ng/dL (0.2-1.0); BUN/CREATININE RATIO 9.67 (6.0-28.6); CALCIUM 7.8 mg/dL (8.5-10.1); CREATININE, SERUM 0.93 mg/dL (0.70-1.30); PHOSPHORUS, INORGANIC 2.8 mg/dL (2.5-4.9); POTASSIUM 3.1 mmol/L (3.5-5.1); PROTEIN, TOTAL 6.5 g/dL (6.4-8.2)
--- NOTE | 2024-03-19 05:55 | NUR ---
IV PUMP ALARMING. NEW BAG IVF INFUSING PER EMAR. SCHEDULED MEDS ADMIN PER EMAR. NO FURTHER NEEDS.
--- NOTE | 2024-03-19 07:18 | NUR ---
REPORT RECEIVED FROM BITUMASTIC APPLIER MONIE BRICE. PATIENT IS LYING IN BED WITH EYES CLOSED AND RESPIRATIONS ARE EVEN AND UNLABORED. TWO [employer] GUARDS ARE SITTING ON THE COUCH. CALL LIGHT AND PERSONAL BELONGINGS ARE WITHIN REACH.
[2024-03-19] MEDS ORDERED: OXYCODONE HCL10 MG PO (08:04)
[2024-03-19] MEDS ORDERED: TYLENOL EXTRA500 MG PO (08:04)
[2024-03-19] MEDS ORDERED: MIRALAX17 GM PO (08:06)
--- NOTE | 2024-03-19 08:39 | NUR ---
PATIENT IS LYING IN BED WITH EYES CLOSED AND RESPIRATIONS ARE EVEN AND UNLABORED. PATIENT WITH A CPOX AT THE BEDSIDE. TWO [employer] GUARDS ARE AT THE BEDSIDE. CALL LIGHT AND PERSONAL BELONGINGS ARE WITHIN REACH.
[2024-03-19 09:29] VITALS: BP 169/85
--- NOTE | 2024-03-19 09:30 | NUR ---
0900 MEDICATIONS ADMINISTERED PER THE EMAR. FULL ASSESSMENT COMPLETE AND DOCUMENTED IN THE CHART. PATIENT IS ALERT AND ORIENTED TIMES FOUR. PATIENT WITH PAIN RATED 5/10 IN THE ABDOMEN. PRN TYLENOL ADMINISTERED PER THE EMAR. ABDOMEN WITH A SURGERY WOUND ABOVE THE UMBILICUS. WOUND WITH DRY DRAINAGE NOTED. SCATTERED BRUISING NOTED WITH REDNESS UNDERNEATH THE RESTRAINTS FROM [employer] ON THE ANKLES. LUNG SOUNDS ARE CLEAR IN THE UPPER LOBES BILATERALLY AND DIMINISHED IN THE BASES BILATERALLY. PATIENT IS ON ROOM AIR. CARDIAC WITH NORMAL S1 AND S2. RADIAL PULSES ARE STRONG. SENSATION INTACT AND WITH NO COMPLAINTS OF NUMBNESS AND TINGLING. BOWEL TONES ARE ACTIVE IN ALL FOUR QUADRANTS. IV SITES REMOVED WITH THE CATHETER TIP INTACT. PATIENT TOLERATED WELL. VITAL SIGNS TAKEN AND DOCUMENTED IN THE CHART. IV PUMP CLEARED. TWO [employer] GUARDS ARE SITTING IN THE ROOM. PATIENT STATED NO FURTHER NEEDS AT THIS TIME. CALL LIGHT AND PERSONAL BELONGINGS ARE WITHIN REACH.
[2024-03-19 09:38] VITALS: BP 169/85
[2024-03-19 09:46] VITALS: BP 169/85
--- NOTE | 2024-03-20 06:40 | DS ---
[facility] [address] [place], [place] [address] Signed ADMISSION DATE: 03/14/2024 DISCHARGE DATE: 03/19/2024 FINAL DIAGNOSES: 1. Cholecystitis with cholelithiasis and pancreatitis. 2. Epigastric and umbilical hernias. PROCEDURES: 1. Laparoscopic cholecystectomy with intraoperative cholangiogram. 2. Primary epigastric and umbilical herniorrhaphies. HISTORY OF PRESENT ILLNESS: Dmitry is a 73-year-old gentleman from our [facility]. He presented to the emergency room with abdominal pain, nausea, and vomiting for several days. On evaluation, he had elevated liver function tests and lipase. CT scan confirmed his gallstone pancreatitis. He had been admitted by our local surgeon Dr. Glynn. Of course, he was treated conservatively upon admission. Upon my return, I took over his care. HOSPITAL COURSE: Matilda was admitted with his gallstone pancreatitis. He was treated conservatively along with his antibiotics. He continued to improve on a daily basis. We took him to surgery yesterday for his laparoscopic cholecystectomy with intraoperative cholangiogram. He had quite a few gallstones and a friable gallbladder. He probably had some debris in his distal common bile duct. It cleared after we gave some glucagon and flushed the common bile duct with saline and some additional contrast. Also he had 10 mm epigastric and 10 mm umbilical hernia. We closed those together with 2 interrupted Prolene sutures. He did well both intraop and postop. This morning his labs were basically normalized. He has been tolerating his diet and his pain is well controlled. He looks and feels much better actually. He said [facility]. DISCHARGE PLANS AND MEDICATIONS: Matilda is going to be [facility] with oxycodone immediate release 10 mg tablets 1 tablet p.o. q.6 hours p.r.n. for severe postoperative pain. Dispensed 15 tablets, no refills. Otherwise, he can use Tylenol, ibuprofen or Aleve p.r.n. for yaow-tn-rpnhzjla pain provided by the jail. He can also use MiraLAX and Dulcolax p.r.n. constipation. He can resume all his usual medications. His dressings have been removed and he is welcome to shower and bathe as usual. He can perform his activities of daily living including walking up and down stairs. He should not do any heavy pushing, pulling, lifting over 20 pounds for a couple of months. He can follow up my Electronically Signed By: TANISHA GUIDRY MD 03/20/24 0640 PATIENT NAME: MATILDA CASTANO DISCHARGE SUMMARY DATE OF : 52 REPORT #: [id number] PHYSICIAN: TANISHA GUIDRY MD PCP: NO PRIMARY CARE PHYSICIAN REPORT IS CONFIDENTIAL AND NOT TO BE RELEASED WITHOUT AUTHORIZATION [address] [address] Signed office in the next 1 to 4 weeks for his surgical followup. I have reviewed this with him. He has expressed understanding and agrees with above the plan. MD ERIK Sol/MERISSAL /[id number] cc: [facility] [place] Patient's Chart Tanisha Guidry MD Copies: TANISHA GUIDRY MD ~ Electronically Signed By: TANISHA GUIDRY MD 03/20/24 0640 PATIENT NAME: MATILDA CASTANO DISCHARGE SUMMARY DATE OF : 52 REPORT #: [id number] PHYSICIAN: TANISHA GUIDRY MD PCP: NO PRIMARY CARE PHYSICIAN REPORT IS CONFIDENTIAL AND NOT TO BE RELEASED WITHOUT AUTHORIZATION
--- NOTE | 2024-03-21 08:26 | OR ---
[facility] [address] [place], [place] [address] Signed DATE OF OPERATION: 03/18/2024 SURGEON: Tanisha Ybarra MD PREOPERATIVE DIAGNOSIS: Gallstone pancreatitis. POSTOPERATIVE DIAGNOSIS: 1. Gallstone pancreatitis. 2. Epigastric umbilical hernias. PROCEDURE: 1. Laparoscopic cholecystectomy with intraoperative cholangiogram. 2. Primary repair of epigastric and umbilical hernias. ESTIMATED BLOOD LOSS: 25 mL. FINDINGS: Matilda's liver had good color, but it was mildly nodular and quite stiff. His gallbladder was becoming quite friable. The intraoperative cholangiogram showed the contrast going through into the duodenum, but it looked like there was some debris in that area. We went ahead and gave some glucagon, flushed it with saline under fluoro and repeated the cholangiogram and it seemed to have cleared. He also had an umbilical and epigastric hernia [id number] by about 2 mm of fascia. We closed those together at the end of the case with two interrupted #1 Prolene sutures. He indeed had quite a bit of gallstones inside his gallbladder. INDICATIONS: Matilda is a 73-year-old [facility]. He had presented to the hospital with gallstone pancreatitis. He was admitted by our local surgeon, Dr. Allison. He was transferred to my care several days ago. He has been improving slowly with respect to his laboratory work along with his clinical course. I had reviewed with Matilda the above findings. We reviewed the location of function of the gallbladder. We discussed laparoscopic versus open cholecystectomy. He understands expected intraop and postop course. There is risk including, but not limited to bleeding, infection, scarring, change in contour of the skin, damage to bowel damage to main bile duct, incisional hernias and other unforeseen comorbidities. He had expressed understanding and wished to proceed. Electronically Signed By: TANISHA YBARRA MD 03/19/24 2941 Electronically Signed By: TANISHA YBARRA MD 03/21/24 0855 PATIENT NAME: MATILDA CASTANO OPERATIVE REPORT DATE OF : 52 REPORT #: [id number] PHYSICIAN: TANISHA YBARRA MD PCP: NO PRIMARY CARE PHYSICIAN REPORT IS CONFIDENTIAL AND NOT TO BE RELEASED WITHOUT AUTHORIZATION [facility] [address] [place] [id number] Signed DESCRIPTION OF PROCEDURE: Matilda was taken into the operating room and placed in the supine position under general endotracheal tube anesthesia. He was already on preoperative cefepime and Flagyl. He was on preoperative Lovenox. He had SCDs in place. He also had a Crawford catheter in place prior to coming to the OR. He had been prepped and draped in the usual sterile fashion. We placed our trocars in our usual positions under direct visualization of camera without difficulty. We noticed that he had not only had a small umbilical hernia, but he had a small epigastric hernia as well. We simply placed our Haritha trocar through the epigastric hernia during the case. The intraoperative findings were as above. We took multiple pictures throughout for photodocumentation. The gallbladder was grasped and elevated in the right upper quadrant. The surrounding fat was taken down carefully as we came down the neck of the gallbladder, we found his gallbladder was fairly friable. We had entered the gallbladder up on the neck and passed our cholangiocatheter in this area and down into the cystic duct. During the intraoperative cholangiogram, we pulled our cholangiocatheter back and we could see that indeed there was a little bit of gallbladder still attached to the cystic duct there. We thought we saw some debris in the distal common bile duct next to the ampulla of Vater. We, therefore, gave some glucagon. We waited 4.5 minutes and flushed that with saline under fluoroscopy and then repeated the cholangiogram and it looks like it all cleared. We secured the cystic duct stump with a PDS Endoloop down close to the cystic duct where the neck of the gallbladder joins the cystic duct. We put two clips across this area to chano its location. We put a couple of clips across the cystic artery and it had been divided. The gallbladder was carefully taken off the gallbladder fossa with the help of the cautery and placed into an EndoCatch bag. The area was irrigated and suctioned out until clear. We used our laparoscopic suturing device to pass 0-Vicryl suture on either side of the fascia subxiphoid trocar site. This was tied down to close this fascia primarily. After this, all the gas was allowed to escape and all the trocars were removed. We removed the gallbladder as well. The gallbladder was opened by our circulating nurse on the back table for photodocumentation. We closed the umbilical epigastric hernia transversely with two interrupted [id number] #1 Prolene sutures. Local anesthetic was injected in all trocar sites. Each trocar site was irrigated and suctioned out until clear. The skin and dermis of each trocar site were closed with interrupted 3-0 subcuticular Monocryl sutures. Dry gauze and tape were applied to all incisions. The Crawford catheter was removed without difficulty. Matilda was awakened from his anesthesia, extubated in the OR, and taken to recovery room in stable condition. Tanisha Ybarra MD Electronically Signed By: TANISHA YBARRA MD 03/19/24 0727 Electronically Signed By: TANISHA YBARRA MD 03/21/24 0855 PATIENT NAME: MATILDA CASTANO OPERATIVE REPORT DATE OF : 52 REPORT #: [id number] PHYSICIAN: TANISHA YBARRA MD PCP: NO PRIMARY CARE PHYSICIAN REPORT IS CONFIDENTIAL AND NOT TO BE RELEASED WITHOUT AUTHORIZATION [facility] [address] [place] [id number] Signed ALB/MODL /[id number] cc: [facility] [place] Tanisha Ybarra MD Copies: TANISHA YBARRA MD ~ Electronically Signed By: TANISHA YBARRA MD 03/19/24 0727 Electronically Signed By: TANISHA YBARRA MD 03/21/24 0855 PATIENT NAME: MATILDA CASTANO OPERATIVE REPORT DATE OF : 52 REPORT #: [id number] PHYSICIAN: TANISHA YBARRA MD PCP: NO PRIMARY CARE PHYSICIAN REPORT IS CONFIDENTIAL AND NOT TO BE RELEASED WITHOUT AUTHORIZATION
== END 2024-03-19 11:06 | disposition other institution, planned readmission (95) | DRG 417 ==
LOC: ED 01:40 → MS 03:22 → CCU 03:22 → MS 03-16 17:55
PROVIDERS: Internal Medicine; ADMIT Transplant Surgery; ATTEND Colon & Rectal Surgery
PROC: BF13YZZ Fluoroscopy of Gallbladder and Bile Ducts using Other Contrast (ICD-10-PCS; 2024-03-18)
PROC: 0FT44ZZ Resection of Gallbladder, Percutaneous Endoscopic Approach (ICD-10-PCS; principal; 2024-03-18 09:05)
PROC: 0WQF0ZZ Repair Abdominal Wall, Open Approach (ICD-10-PCS; 2024-03-18 09:05)
DX: K80.10 Calculus of gallbladder with chronic cholecystitis without obstruction (principal); K85.10 Biliary acute pancreatitis without necrosis or infection; E87.20 Acidosis, unspecified; E87.1 Hypo-osmolality and hyponatremia; I10 Essential (primary) hypertension; E78.00 Pure hypercholesterolemia, unspecified; F32.A Depression, unspecified; K21.9 Gastro-esophageal reflux disease without esophagitis; E03.9 Hypothyroidism, unspecified; N40.0 Benign prostatic hyperplasia without lower urinary tract symptoms; F41.9 Anxiety disorder, unspecified; K42.9 Umbilical hernia without obstruction or gangrene; K43.9 Ventral hernia without obstruction or gangrene; E87.6 Hypokalemia; E83.42 Hypomagnesemia; E83.39 Other disorders of phosphorus metabolism; Z87.891 Personal history of nicotine dependence; Z88.0 Allergy status to penicillin; Z11.52 Encounter for screening for COVID-19
CPT/HCPCS: 00790; 36415; 71045; 74177; 74300; 76705; 80053; 81001; 81003; 82248; 83605; 83690; 83735; 84100; 84443; 85025; 85610; 87040; 87502; 93005; 93010; 94762; 96361; 96375; 99285-25; A9270; J0131; J0692; J1100; J1170; J1610; J1650; J1885; J1956; J2405; J2704; J3475; J3490; J7030; J7060; J7121; Q9967; U0002